=== PATIENT | male | born 1945 | race Caucasian/White ===

== ENCOUNTER 2018-06-29 18:43 | Emergency (ER) | payer MEDICARE, MEDICAID ==
[~2018-06-29] VITALS: Ht 175.3 cm; Wt 104.5 kg
[~2018-06-29 18:43] MED LIST: AMLO1CAP71 PO; ATOR40TA PO; COR3.125T PO; FURO-150 PO; METF500T PO; OMEP-84 PO; POTA8TAB46 PO; REPA2TAB7 PO; SAXA5TAB PO
[2018-06-29] MEDS ORDERED: dextrose 50%-water 50ml dispensing syringe IV ONE (19:11)
[2018-06-29 19:54] LABS: BASOPHILS # (AUTO) 0.1 X10'3 (0-0.2); BASOPHILS % (AUTO) 0.7 % (0-1); EOSINOPHILS # (AUTO) 0.2 X10'3 (0-0.9); EOSINOPHILS % (AUTO) 1.5 % (0-6); HEMATOCRIT 44.3 % (42.0-52.0); HEMOGLOBIN 14.5 g/dl (14.0-17.9); LYMPHOCYTES # (AUTO) 1.8 X10'3 (1.1-4.8); LYMPHOCYTES % (AUTO) 16.6 % (21-51); MEAN CORPUSCULAR HEMOGLOBIN 30.7 PG (27.0-31.0); MEAN CORPUSCULAR HGB CONC 32.7 g/dL (33.0-36.5); MEAN CORPUSCULAR VOLUME 93.7 FL (78-98); MEAN PLATELET VOLUME 9.1 FL (7.4-10.4); MONOCYTES # (AUTO) 0.8 X10'3 (0-0.9); MONOCYTES % (AUTO) 6.9 % (2-12); NEUTROPHILS # (AUTO) 8.1 X10'3 (1.8-7.7); NEUTROPHILS % (AUTO) 74.3 % (42-75); PLATELET COUNT 242 X10'3 (140-440); RED BLOOD COUNT 4.73 X10'6 (4.70-6.10); RED CELL DISTRIBUTION WIDTH 15.7 % (11.5-14.5); WHITE BLOOD COUNT 10.9 X10'3 (4.5-11.0)
[2018-06-29] MEDS ORDERED: ondansetron/PF 4mg/2ml inj IV ONE (20:15)
[2018-06-29] MEDS ORDERED: normal saline 1000ML IV soln IVB ONE (20:15)
[2018-06-29 21:48] LABS: ALANINE AMINOTRANSFERASE 27 U/L (12-78); ALBUMIN 3.7 G/DL (3.4-5.0); ALKALINE PHOSPHATASE 91 IU/L (46-116); ANION GAP 10 (8-16); ASPARTATE AMINO TRANSFERASE 28 U/L (10-37); BILIRUBIN,TOTAL 0.6 MG/DL (0.1-1.0); BLOOD UREA NITROGEN 20 MG/DL (7-18); BUN/CREATININE RATIO 15.6 (5.4-32.0); CALCIUM 9.4 MG/DL (8.5-10.1); CHLORIDE 104 MMOL/L (99-107); CREATININE 1.28 MG/DL (0.60-1.10); GLUCOSE 92 MG/DL (70-104); POTASSIUM 3.5 MMOL/L (3.5-5.1); SODIUM 142 MMOL/L (135-145); TOTAL CARBON DIOXIDE 28.2 MMOL/L (24-32); TOTAL PROTEIN 7.5 G/DL (6.4-8.2); eGFR 55 ML/MIN
--- NOTE | 2018-06-29 21:50 | NUR ---
DARIANA ZIMMERMAN DAUGHTER [phone].
[2018-06-29 21:51] LABS: TROPONIN I < 0.04 NG/ML (0.0-0.05)
[2018-06-29 21:54] VITALS: BP 158/78
--- NOTE | 2018-06-29 22:38 | NUR ---
TECH IS ASSISTING PATIENT TO GET DRESSED, GET UP AND GO TO THE BATHROOM.
--- NOTE | 2018-06-29 22:49 | NUR ---
PT DRESSED AND TOILETED INDEPENDENTLY WITHOUT ANY COMPLICATIONS AND DAUGHTER WAS NOTIFIED AND SHE WILL COME AND GET HIM.
== END 2018-06-29 23:04 | disposition home or self-care (01) ==
LOC: ER 18:44
DX: E86.0 Dehydration (principal); R41.82 Altered mental status, unspecified; E11.65 Type 2 diabetes mellitus with hyperglycemia; R60.0 Localized edema; E11.42 Type 2 diabetes mellitus with diabetic polyneuropathy; I11.0 Hypertensive heart disease with heart failure; I50.9 Heart failure, unspecified; E78.00 Pure hypercholesterolemia, unspecified; J45.909 Unspecified asthma, uncomplicated; Z86.73 Personal history of transient ischemic attack (TIA), and cerebral infarction without residual deficits; Z88.1 Allergy status to other antibiotic agents; Z79.899 Other long term (current) drug therapy
CPT/HCPCS: 36415; 70450; 71045; 72125; 80053; 82948; 84484; 85025; 93005; 96374; 96375; 99284; J2405; J7030

== ENCOUNTER 2019-04-11 20:46 | Emergency (ER) | payer MEDICARE, MEDICAID ==
[~2019-04-11] VITALS: Ht 175.3 cm; Wt 111.9 kg
[2019-04-11 20:50] VITALS: BP 184/95
[2019-04-11] MEDS ORDERED: rabies immune globulin/PF 150 unit/ml inj IMVAC STA (22:27)
[2019-04-11] MEDS ORDERED: ibuprofen tablet 400 MG TABLET PO ONE (22:30)
[2019-04-11] MEDS ORDERED: LIDOcaine 1% W/epiNEPHrine 1:200,000 10ml vial IJ ONE (22:30)
[2019-04-11] MEDS ORDERED: rabies vaccine (PCEC)/PF 2.5 unit kit IMVAC ONE (22:30)
[2019-04-11] MEDS ORDERED: DOXY100C43 PO (22:53)
[2019-04-11] MEDS ORDERED: DOXYCYCLINE 100MG CAPSULE PO STA (23:17)
--- NOTE | 2019-04-11 23:56 | NUR ---
IMMUNE GLOBULIN ADMINSTERED 8 ML AT SITE OF BITE, L HAND. 3 ML R ARM, 3 ML L LEG, 1 ML L ARM
== END 2019-04-12 00:29 | disposition home or self-care (01) ==
LOC: ER 20:47
DX: S61.412A Laceration without foreign body of left hand, initial encounter (principal); S60.511A Abrasion of right hand, initial encounter; Z23 Encounter for immunization; E11.42 Type 2 diabetes mellitus with diabetic polyneuropathy; I11.0 Hypertensive heart disease with heart failure; I50.9 Heart failure, unspecified; E78.00 Pure hypercholesterolemia, unspecified; J45.909 Unspecified asthma, uncomplicated; G47.30 Sleep apnea, unspecified; Z86.73 Personal history of transient ischemic attack (TIA), and cerebral infarction without residual deficits; Z98.890 Other specified postprocedural states; Z88.1 Allergy status to other antibiotic agents; Z79.84 Long term (current) use of oral hypoglycemic drugs; Z79.899 Other long term (current) drug therapy; W55.01XA Bitten by cat, initial encounter; Y93.89 Activity, other specified; Y92.89 Other specified places as the place of occurrence of the external cause; Y99.8 Other external cause status
CPT/HCPCS: 90375; 90471; 90675; 96372; 96374; 99284

== ENCOUNTER 2019-04-14 11:04 | Emergency (ER) | payer MEDICARE, MEDICAID ==
[~2019-04-14] VITALS: Ht 175.3 cm; Wt 110.2 kg
[~2019-04-14 11:04] MED LIST changes: +DOXY100C43 PO
[2019-04-14 11:18] VITALS: BP 172/84
[2019-04-14] MEDS ORDERED: rabies vaccine (PCEC)/PF 2.5 unit kit IMVAC ONE (11:40)
== END 2019-04-14 12:25 | disposition home or self-care (01) ==
LOC: ER 11:05
DX: Z23 Encounter for immunization (principal); I11.0 Hypertensive heart disease with heart failure; I50.9 Heart failure, unspecified; E78.00 Pure hypercholesterolemia, unspecified; J45.909 Unspecified asthma, uncomplicated; E11.42 Type 2 diabetes mellitus with diabetic polyneuropathy; Z86.73 Personal history of transient ischemic attack (TIA), and cerebral infarction without residual deficits; Z88.1 Allergy status to other antibiotic agents; Z79.899 Other long term (current) drug therapy
CPT/HCPCS: 90471; 90675; 99283

== ENCOUNTER 2019-04-18 14:23 | Emergency (ER) | payer MEDICARE, MEDICAID ==
[~2019-04-18] VITALS: Ht 175.3 cm; Wt 113.2 kg
[2019-04-18 14:32] VITALS: BP 163/82
[2019-04-18] MEDS ORDERED: rabies vaccine (PCEC)/PF 2.5 unit kit IMVAC ONE (14:50)
== END 2019-04-18 15:29 | disposition home or self-care (01) ==
LOC: ER 14:24
DX: Z23 Encounter for immunization (principal); S61.531D Puncture wound without foreign body of right wrist, subsequent encounter; S60.812D Abrasion of left wrist, subsequent encounter; E78.00 Pure hypercholesterolemia, unspecified; J45.909 Unspecified asthma, uncomplicated; E11.42 Type 2 diabetes mellitus with diabetic polyneuropathy; I11.0 Hypertensive heart disease with heart failure; I50.9 Heart failure, unspecified; Z86.73 Personal history of transient ischemic attack (TIA), and cerebral infarction without residual deficits; Z88.1 Allergy status to other antibiotic agents; Z79.899 Other long term (current) drug therapy; W55.01XD Bitten by cat, subsequent encounter
CPT/HCPCS: 90471; 90675; 99284

== ENCOUNTER 2019-04-25 18:49 | Emergency (ER) | payer MEDICARE, MEDICAID ==
[~2019-04-25] VITALS: Ht 175.3 cm; Wt 113.1 kg
[~2019-04-25 18:49] MED LIST changes: -DOXY100C43 PO
[2019-04-25] MEDS ORDERED: rabies vaccine (PCEC)/PF 2.5 unit kit IMVAC ONE (19:00)
[2019-04-25 19:51] VITALS: BP 182/110
== END 2019-04-25 19:53 | disposition home or self-care (01) ==
LOC: ER 18:49
DX: Z23 Encounter for immunization (principal); I11.0 Hypertensive heart disease with heart failure; I50.9 Heart failure, unspecified; E11.42 Type 2 diabetes mellitus with diabetic polyneuropathy; E78.00 Pure hypercholesterolemia, unspecified; Z86.73 Personal history of transient ischemic attack (TIA), and cerebral infarction without residual deficits; J45.909 Unspecified asthma, uncomplicated; Z88.1 Allergy status to other antibiotic agents; Z79.899 Other long term (current) drug therapy
CPT/HCPCS: 90471; 90675; 99283

== ENCOUNTER 2020-02-06 15:44 | Emergency (ER) | payer MEDICARE, MEDICAID ==
[~2020-02-06] VITALS: Ht 175.3 cm; Wt 120.2 kg
--- NOTE | 2020-02-06 20:18 | NUR ---
ULTRASOUND FINISHED AT THE BEDSIDE
[2020-02-06 21:00] VITALS: BP 167/79
[2020-02-06 21:36] LABS: BASOPHILS % (AUTO) 0.6 % (0-1); EOSINOPHILS # (AUTO) 0.1 X10'3 (0-0.9); EOSINOPHILS % (AUTO) 2.8 % (0-6); HEMATOCRIT 42.2 % (42.0-52.0); HEMOGLOBIN 14.2 g/dl (14.0-17.9); LYMPHOCYTES # (AUTO) 2.4 X10'3 (1.1-4.8); LYMPHOCYTES % (AUTO) 58.9 % (21-51); MEAN CORPUSCULAR HEMOGLOBIN 31.6 PG (27.0-31.0); MEAN CORPUSCULAR HGB CONC 33.7 g/dL (33.0-36.5); MEAN CORPUSCULAR VOLUME 93.9 FL (78-98); MEAN PLATELET VOLUME 8.2 FL (7.4-10.4); MONOCYTES # (AUTO) 0.5 X10'3 (0-0.9); MONOCYTES % (AUTO) 12.9 % (2-12); NEUTROPHILS % (AUTO) 24.8 % (42-75); PLATELET COUNT 267 X10'3 (140-440); RED CELL DISTRIBUTION WIDTH 15.6 % (11.5-14.5); WHITE BLOOD COUNT 4.1 X10'3 (4.5-11.0)
[2020-02-06 21:43] LABS: ALANINE AMINOTRANSFERASE 27 U/L (12-78); ALBUMIN 3.7 G/DL (3.4-5.0); ALBUMIN/GLOBULIN RATIO 0.9 (1.1-1.5); ALKALINE PHOSPHATASE 94 IU/L (46-116); ANION GAP 9 (8-16); ASPARTATE AMINO TRANSFERASE 27 U/L (10-37); BILIRUBIN,TOTAL 0.3 MG/DL (0.1-1.0); BLOOD UREA NITROGEN 25 MG/DL (7-18); BUN/CREATININE RATIO 14.5 (5.4-32.0); CALCIUM 9.2 MG/DL (8.5-10.1); CHLORIDE 104 MMOL/L (99-107); CREATININE 1.73 MG/DL (0.60-1.10); GLUCOSE 85 MG/DL (70-104); SODIUM 141 MMOL/L (135-145); TOTAL CARBON DIOXIDE 28.2 MMOL/L (24-32); TOTAL PROTEIN 7.6 G/DL (6.4-8.2); eGFR 39 ML/MIN
[2020-02-06] MEDS ORDERED: DOXY100C2 PO (21:51)
== END 2020-02-06 22:24 | disposition home or self-care (01) ==
LOC: ER 15:45
DX: M79.604 Pain in right leg (principal); E11.42 Type 2 diabetes mellitus with diabetic polyneuropathy; I50.9 Heart failure, unspecified; E78.00 Pure hypercholesterolemia, unspecified; I11.0 Hypertensive heart disease with heart failure; G47.30 Sleep apnea, unspecified; Z86.73 Personal history of transient ischemic attack (TIA), and cerebral infarction without residual deficits; Z98.890 Other specified postprocedural states; Z88.8 Allergy status to other drugs, medicaments and biological substances; Z79.899 Other long term (current) drug therapy
CPT/HCPCS: 80053; 85025; 93971; 99284

== ENCOUNTER 2021-12-02 10:44 | Inpatient (IN) | payer MEDICARE, MEDICAID ==
[~2021-12-02] VITALS: Ht 175.3 cm; Wt 92.9 kg
--- NOTE | 2021-12-02 10:57 | NUR ---
GIVEN ORANGE JUICE FOR BG 62.
--- NOTE | 2021-12-02 10:58 | NUR ---
PATIENT ADDED THAT HIS BLE WERE INCREASING IN SWELLING FOR THE PAST COUPLE OF DAYS WELL.
--- NOTE | 2021-12-02 11:24 | NUR ---
Catie Blackwell, patient's [facility] worker, called to check on patient and inform us that if patient is discharged she is available to pick him up.
[2021-12-02 12:33] LABS: BASOPHILS % (AUTO) 0.3 % (0-1); EOSINOPHILS % (AUTO) 0.1 % (0-6); HEMATOCRIT 35.8 % (42.0-52.0); HEMOGLOBIN 11.7 g/dl (14.0-17.9); LYMPHOCYTES # (AUTO) 0.8 X10'3 (1.1-4.8); MEAN CORPUSCULAR HEMOGLOBIN 32.4 PG (27.0-31.0); MEAN CORPUSCULAR HGB CONC 32.8 g/dL (33.0-36.5); MEAN CORPUSCULAR VOLUME 98.7 FL (78-98); MEAN PLATELET VOLUME 8.9 FL (7.4-10.4); MONOCYTES # (AUTO) 0.4 X10'3 (0-0.9); MONOCYTES % (AUTO) 5.8 % (2-12); NEUTROPHILS # (AUTO) 5.7 X10'3 (1.8-7.7); NEUTROPHILS % (AUTO) 81.8 % (42-75); PLATELET COUNT 246 X10'3 (140-440); RED BLOOD COUNT 3.62 X10'6 (4.70-6.10); RED CELL DISTRIBUTION WIDTH 16.4 % (11.5-14.5)
[2021-12-02 12:53] LABS: ALANINE AMINOTRANSFERASE 24 U/L (12-78); ALBUMIN 3.6 G/DL (3.4-5.0); ALBUMIN/GLOBULIN RATIO 1.1 (1.1-1.5); ALKALINE PHOSPHATASE 75 IU/L (46-116); ANION GAP 9 (8-16); ASPARTATE AMINO TRANSFERASE 25 U/L (10-37); BILIRUBIN,TOTAL 0.4 MG/DL (0.1-1.0); BLOOD UREA NITROGEN 76 MG/DL (7-18); BUN/CREATININE RATIO 15.2 (5.4-32.0); CALCIUM 8.8 MG/DL (8.5-10.1); CHLORIDE 111 MMOL/L (99-107); CREATININE 4.99 MG/DL (0.60-1.10); GLUCOSE 109 MG/DL (70-104); SODIUM 137 MMOL/L (135-145); TOTAL CARBON DIOXIDE 17.3 MMOL/L (24-32); eGFR 11 ML/MIN
[2021-12-02 13:11] LABS: POTASSIUM 8.1 MMOL/L (3.5-5.1)
[2021-12-02] MEDS ORDERED: normal saline 1000ML IV soln IVB ONE ×2 (13:15→13:35)
[2021-12-02] MEDS ORDERED: calcium chloride 100 MG/1 ML inj IV ONE (13:30)
[2021-12-02] MEDS ORDERED: albuterol 2.5 MG/3 ML nebule CONTNEB PRN (13:30)
[2021-12-02] MEDS ORDERED: SODIUM ZIRCONIUM CYCLOSILICATE 10 GM POWD.PACK PO STA (13:35)
[2021-12-02 13:40] LABS: CLARITY,URINE CLEAR (Clear); COLOR,URINE YELLOW (Yellow); GLUCOSE, URINE NEGATIVE (Neg); KETONES,URINE NEGATIVE (Neg); LEUKOCYTE ESTERASE ,URINE NEGATIVE (Neg); NITRITES, URINE NEGATIVE (Neg); OCCULT BLOOD,URINE SMALL (Neg); PROTEIN,URINE NEGATIVE (Neg); UROBILINOGEN,URINE 0.2 E.U/dL (0.2-1.0)
[2021-12-02 13:41] LABS: UA COLLECTION TYPE VOIDED
[2021-12-02 13:47] LABS: HYALINE CASTS 0-3 /LPF (NEGATIVE)
[2021-12-02 13:48] LABS: BACTERIA,URINE NONE SEEN /HPF (Neg); MUCUS STRANDS NONE SEEN /LPF (Neg); RBC,URINE 0-2 /HPF (0-2); SQUAMOUS EPITHELIAL CELL,UR FEW /LPF (FEW); WBC,URINE 0-4 /HPF (0-4)
[2021-12-02] MEDS ORDERED: magnesium 4gm in 100ml NS 100 ML IV PRN (15:05)
[2021-12-02] MEDS ORDERED: acetaminophen 325mg tablet PO PRN (15:05)
[2021-12-02] MEDS ORDERED: potassium CL 10mEq/100ml bag 100 ML IV PRN (15:05)
[2021-12-02] MEDS ORDERED: magnesium 2GM in 50ml NS 50 ML IV PRN (15:05)
[2021-12-02] MEDS ORDERED: POTASSIUM BICARB 20meq eff tab 20 MEQ TABLET.EFF PO PRN ×2 (15:05)
[2021-12-02] MEDS ORDERED: ondansetron/PF 4mg/2ml inj IV PRN (15:05)
[2021-12-02] MEDS ORDERED: sodium polystyrene sulfonate 15gm/60ml oral suspension PO ONE (15:10)
[2021-12-02 15:26] LABS: MAGNESIUM 1.4 MG/DL (1.5-2.4)
--- NOTE | 2021-12-02 15:42 | NUR ---
Patient in room PCU 3010. I have received report from GABRIELLE OCHOA FROM ER and had the opportunity to ask questions and assume patient care.
[2021-12-02 16:00] VITALS: BP 128/63
[2021-12-02 16:07] LABS: ALANINE AMINOTRANSFERASE 24 U/L (12-78); ALBUMIN 3.4 G/DL (3.4-5.0); ALKALINE PHOSPHATASE 73 IU/L (46-116); ANION GAP 12 (8-16); ASPARTATE AMINO TRANSFERASE 27 U/L (10-37); BILIRUBIN,TOTAL 0.4 MG/DL (0.1-1.0); BLOOD UREA NITROGEN 74 MG/DL (7-18); BUN/CREATININE RATIO 16.3 (5.4-32.0); CALCIUM 9.1 MG/DL (8.5-10.1); CHLORIDE 114 MMOL/L (99-107); CREATININE 4.54 MG/DL (0.60-1.10); GLUCOSE 108 MG/DL (70-104); SODIUM 142 MMOL/L (135-145); TOTAL PROTEIN 6.7 G/DL (6.4-8.2); eGFR 13 ML/MIN
--- NOTE | 2021-12-02 16:09 | NUR ---
CRITICAL POTASSIUM, DR LINO AWAITING CALL BACK, WILL GIVE KAYEXALATE ORDERED
[2021-12-02 16:11] LABS: POTASSIUM 6.4 MMOL/L (3.5-5.1)
[2021-12-02] MEDS: normal saline 1000ml 1,000 ML IV SCH (17:05)
[2021-12-02 18:00] VITALS: BP 138/65
[2021-12-02] MEDS ORDERED: METF-438 PO (18:08)
[2021-12-02] MEDS ORDERED: INSU100I25 SQ (18:08)
[2021-12-02] MEDS ORDERED: AMLO-139 PO (18:08)
[2021-12-02] MEDS ORDERED: POTA-208 PO (18:08)
[2021-12-02] MEDS ORDERED: CARV6.253 PO (18:08)
[2021-12-02] MEDS ORDERED: dextrose 50%-water 50ml dispensing syringe IV PRN ×2 (18:45)
[2021-12-02] MEDS ORDERED: glucagon, human recombinant 1mg kit SUBCUT PRN (18:45)
[2021-12-02] MEDS ORDERED: DEXTROSE 15 GM of carb/4 tabs (each vial/BOTTLE has 4 tablets) PO PRN ×2 (18:45)
[2021-12-02] MEDS ORDERED: MESSAGE TO PHARMACY PO ONE (18:45)
[2021-12-02] MEDS ORDERED: insulin Lispro (HumaLOG) vial - multi-dose SQ SCH (18:45)
--- NOTE | 2021-12-02 19:05 | NUR ---
Problems reprioritized. Patient report given, questions answered & plan of care reviewed with GABRIELLE RUDOLPH.
[2021-12-02 19:28] LABS: HEMOGLOBIN A1C 6.7 % (4.5-6.2)
[2021-12-02] MEDS: K and/or MAG REPLACEMENT MC SCH (19:50)
[2021-12-02] MEDS: insulin glargine (Lantus) pen - multi-dose SQ SCH (21:00)
[2021-12-02 22:00] VITALS: BP 155/41
[2021-12-03] VITALS (7 sets, daily range): BP systolic 116–131; BP diastolic 54–65
[2021-12-03] MEDS: normal saline 1000ml 1,000 ML IV SCH ×2 (01:05→11:45)
--- NOTE | 2021-12-03 05:28 | NUR ---
two RN skin check completed with Vira ANTHONY. System would not allow co-sign
--- NOTE | 2021-12-03 06:35 | NUR ---
Patient in room PCU 3010. I have received report from GABRIELLE RUDOLPH and had the opportunity to ask questions and assume patient care.
[2021-12-03 06:49] LABS: BASOPHILS % (AUTO) 0.6 % (0-1); EOSINOPHILS # (AUTO) 0.1 X10'3 (0-0.9); EOSINOPHILS % (AUTO) 2.9 % (0-6); HEMATOCRIT 29.2 % (42.0-52.0); HEMOGLOBIN 9.9 g/dl (14.0-17.9); LYMPHOCYTES # (AUTO) 1.3 X10'3 (1.1-4.8); LYMPHOCYTES % (AUTO) 26.3 % (21-51); MEAN CORPUSCULAR HEMOGLOBIN 33.5 PG (27.0-31.0); MEAN CORPUSCULAR VOLUME 98.6 FL (78-98); MEAN PLATELET VOLUME 8.8 FL (7.4-10.4); MONOCYTES # (AUTO) 0.4 X10'3 (0-0.9); MONOCYTES % (AUTO) 8.5 % (2-12); NEUTROPHILS # (AUTO) 3.1 X10'3 (1.8-7.7); NEUTROPHILS % (AUTO) 61.7 % (42-75); PLATELET COUNT 196 X10'3 (140-440); RED BLOOD COUNT 2.96 X10'6 (4.70-6.10); RED CELL DISTRIBUTION WIDTH 16.1 % (11.5-14.5); WHITE BLOOD COUNT 5.1 X10'3 (4.5-11.0)
[2021-12-03 07:05] LABS: ANION GAP 11 (8-16); BLOOD UREA NITROGEN 60 MG/DL (7-18); CALCIUM 8.2 MG/DL (8.5-10.1); CHLORIDE 117 MMOL/L (99-107); CREATININE 3.76 MG/DL (0.60-1.10); GLUCOSE 137 MG/DL (70-104); MAGNESIUM 1.2 MG/DL (1.5-2.4); POTASSIUM 5.5 MMOL/L (3.5-5.1); SODIUM 145 MMOL/L (135-145); TOTAL CARBON DIOXIDE 17.2 MMOL/L (24-32); eGFR 16 ML/MIN
[2021-12-03] MEDS: K and/or MAG REPLACEMENT MC SCH ×2 (08:00→19:08)
[2021-12-03] MEDS: sodium chloride 0.45% 1,000 ML IV SCH ×2 (08:51→13:05)
[2021-12-03] MEDS ORDERED: PERFLUTREN PROTEIN-A MICROSPHR (Optison) 0.22 MG/ML 3ML VIAL IV ONE (13:10)
--- NOTE | 2021-12-03 18:57 | NUR ---
Problems reprioritized. Patient report given, questions answered & plan of care reviewed with GABRIELLE RUDOLPH.
[2021-12-03] MEDS ORDERED: insulin glargine (Lantus) pen - multi-dose SQ SCH (21:00)
[2021-12-03] MEDS: insulin glargine (Lantus) pen - multi-dose SQ SCH (21:00)
[2021-12-03] MEDS: carvedilol 6.25mg tablet PO SCH (21:02)
[2021-12-03] MEDS: atorvastatin 20mg tablet PO SCH (21:02)
[2021-12-04 02:00] VITALS: BP 133/60
[2021-12-04 06:00] VITALS: BP 131/57
--- NOTE | 2021-12-04 06:45 | NUR ---
Patient in room PCU 3010. I have received report from GABRIELLE Mcintyre and had the opportunity to ask questions and assume patient care.
[2021-12-04 07:33] LABS: BASOPHILS % (AUTO) 0.6 % (0-1); EOSINOPHILS # (AUTO) 0.2 X10'3 (0-0.9); EOSINOPHILS % (AUTO) 5.4 % (0-6); HEMATOCRIT 29.8 % (42.0-52.0); HEMOGLOBIN 10.1 g/dl (14.0-17.9); LYMPHOCYTES # (AUTO) 1.3 X10'3 (1.1-4.8); MEAN CORPUSCULAR HEMOGLOBIN 33.2 PG (27.0-31.0); MEAN CORPUSCULAR HGB CONC 33.8 g/dL (33.0-36.5); MEAN CORPUSCULAR VOLUME 98.3 FL (78-98); MEAN PLATELET VOLUME 9.5 FL (7.4-10.4); MONOCYTES # (AUTO) 0.4 X10'3 (0-0.9); MONOCYTES % (AUTO) 9.6 % (2-12); NEUTROPHILS # (AUTO) 2.5 X10'3 (1.8-7.7); NEUTROPHILS % (AUTO) 56.4 % (42-75); PLATELET COUNT 203 X10'3 (140-440); RED BLOOD COUNT 3.03 X10'6 (4.70-6.10); RED CELL DISTRIBUTION WIDTH 16.2 % (11.5-14.5); WHITE BLOOD COUNT 4.5 X10'3 (4.5-11.0)
[2021-12-04 07:49] LABS: ALBUMIN 2.9 G/DL (3.4-5.0); ANION GAP 12 (8-16); BLOOD UREA NITROGEN 43 MG/DL (7-18); BUN/CREATININE RATIO 15.6 (5.4-32.0); CALCIUM 8.1 MG/DL (8.5-10.1); CHLORIDE 117 MMOL/L (99-107); CREATININE 2.75 MG/DL (0.60-1.10); GLUCOSE 152 MG/DL (70-104); MAGNESIUM 1.3 MG/DL (1.5-2.4); POTASSIUM 4.7 MMOL/L (3.5-5.1); SODIUM 148 MMOL/L (135-145); TOTAL CARBON DIOXIDE 19.3 MMOL/L (24-32); eGFR 23 ML/MIN
[2021-12-04] MEDS: K and/or MAG REPLACEMENT MC SCH ×2 (08:00→20:00)
[2021-12-04] MEDS: carvedilol 6.25mg tablet PO SCH ×2 (08:37→23:04)
[2021-12-04] MEDS: pantoprazole 40mg Tablet.DR PO SCH (08:38)
[2021-12-04] MEDS: magnesium Cl slow-release 64mg tablet PO PRN ×2 (09:13→23:03)
[2021-12-04] MEDS: sodium chloride 0.45% 1,000 ML IV SCH (09:24)
[2021-12-04 11:00] VITALS: BP 133/70
[2021-12-04 15:00] VITALS: BP 125/58
[2021-12-04 17:05] LABS: CLARITY,URINE CLEAR (Clear); COLOR,URINE YELLOW (Yellow); GLUCOSE, URINE 100 mg/dl (Neg); KETONES,URINE NEGATIVE (Neg); LEUKOCYTE ESTERASE ,URINE NEGATIVE (Neg); NITRITES, URINE NEGATIVE (Neg); OCCULT BLOOD,URINE NEGATIVE (Neg); PH,URINE 5.5 (4.8-8.0); PROTEIN,URINE NEGATIVE (Neg); UROBILINOGEN,URINE 0.2 E.U/dL (0.2-1.0)
[2021-12-04 17:06] LABS: UA COLLECTION TYPE NON-SPECIFIED
[2021-12-04 17:07] LABS: TOTAL PROTEIN,URINE RANDOM 24.6 MG/DL
[2021-12-04 18:00] VITALS: BP 122/59
[2021-12-04 18:05] LABS: UA EOSINOPHILS NO EOS /HPF
[2021-12-04] MEDS: insulin glargine (Lantus) pen - multi-dose SQ SCH (21:00)
[2021-12-04 22:00] VITALS: BP 129/60
[2021-12-04] MEDS: atorvastatin 20mg tablet PO SCH (23:04)
[2021-12-05 02:00] VITALS: BP 118/56
[2021-12-05] MEDS: sodium chloride 0.45% 1,000 ML IV SCH ×2 (05:05→09:55)
[2021-12-05 06:00] VITALS: BP 147/75
--- NOTE | 2021-12-05 06:33 | NUR ---
Patient in room PCU 3010. I have received report from GABRIELLE Mcintyre and had the opportunity to ask questions and assume patient care.
[2021-12-05 06:47] LABS: BASOPHILS % (AUTO) 0.6 % (0-1); EOSINOPHILS # (AUTO) 0.3 X10'3 (0-0.9); EOSINOPHILS % (AUTO) 5.8 % (0-6); HEMATOCRIT 29.8 % (42.0-52.0); HEMOGLOBIN 10.2 g/dl (14.0-17.9); LYMPHOCYTES # (AUTO) 1.4 X10'3 (1.1-4.8); LYMPHOCYTES % (AUTO) 28.3 % (21-51); MEAN CORPUSCULAR HEMOGLOBIN 33.1 PG (27.0-31.0); MEAN CORPUSCULAR VOLUME 97.3 FL (78-98); MEAN PLATELET VOLUME 8.8 FL (7.4-10.4); MONOCYTES # (AUTO) 0.5 X10'3 (0-0.9); NEUTROPHILS # (AUTO) 2.7 X10'3 (1.8-7.7); NEUTROPHILS % (AUTO) 55.3 % (42-75); PLATELET COUNT 218 X10'3 (140-440); RED BLOOD COUNT 3.07 X10'6 (4.70-6.10); RED CELL DISTRIBUTION WIDTH 16.3 % (11.5-14.5); WHITE BLOOD COUNT 4.8 X10'3 (4.5-11.0)
[2021-12-05 07:06] LABS: ANION GAP 10 (8-16); BLOOD UREA NITROGEN 33 MG/DL (7-18); BUN/CREATININE RATIO 13.6 (5.4-32.0); CALCIUM 7.8 MG/DL (8.5-10.1); CHLORIDE 115 MMOL/L (99-107); CREATININE 2.42 MG/DL (0.60-1.10); GLUCOSE 142 MG/DL (70-104); MAGNESIUM 1.3 MG/DL (1.5-2.4); POTASSIUM 4.7 MMOL/L (3.5-5.1); SODIUM 145 MMOL/L (135-145); TOTAL CARBON DIOXIDE 19.8 MMOL/L (24-32); eGFR 26 ML/MIN
[2021-12-05] MEDS: K and/or MAG REPLACEMENT MC SCH (08:00)
[2021-12-05] MEDS: pantoprazole 40mg Tablet.DR PO SCH (08:33)
[2021-12-05] MEDS: carvedilol 6.25mg tablet PO SCH (08:33)
[2021-12-05] MEDS: magnesium Cl slow-release 64mg tablet PO PRN (08:58)
[2021-12-05 11:00] VITALS: BP 135/72
[2021-12-05] MEDS ORDERED: FURO-150 PO (11:23)
[2021-12-05] MEDS ORDERED: INSU100I25 SQ (11:23)
[2021-12-05] MEDS ORDERED: [UNRECOGNIZED DRUG - CODE] TOP (11:30)
[2021-12-05] MEDS ORDERED: [UNRECOGNIZED DRUG - CODE] SQ (11:30)
--- NOTE | 2021-12-10 09:12 | NUR ---
Case Management DC follow up: left VM with name, telephone number, and reason for call.
== END 2021-12-05 14:52 | disposition home health service (06) | DRG 682 ==
LOC: ER 10:44 → PCU 3S 15:08
PROVIDERS: ADMIT Internal Medicine; ATTEND Internal Medicine
DX: N17.0 Acute kidney failure with tubular necrosis (principal); I50.31 Acute diastolic (congestive) heart failure; I13.0 Hypertensive heart and chronic kidney disease with heart failure and stage 1 through stage 4 chronic kidney disease, or unspecified chronic kidney disease; E87.2 Acidosis; E86.0 Dehydration; E87.5 Hyperkalemia; E11.22 Type 2 diabetes mellitus with diabetic chronic kidney disease; N18.9 Chronic kidney disease, unspecified; I50.9 Heart failure, unspecified; E11.42 Type 2 diabetes mellitus with diabetic polyneuropathy; E78.00 Pure hypercholesterolemia, unspecified; K21.9 Gastro-esophageal reflux disease without esophagitis; W06.XXXA Fall from bed, initial encounter; T50.1X5A Adverse effect of loop [high-ceiling] diuretics, initial encounter; E66.01 Morbid (severe) obesity due to excess calories; G47.30 Sleep apnea, unspecified; E11.649 Type 2 diabetes mellitus with hypoglycemia without coma; R19.7 Diarrhea, unspecified; I25.10 Atherosclerotic heart disease of native coronary artery without angina pectoris; J45.909 Unspecified asthma, uncomplicated; Z79.4 Long term (current) use of insulin; Z86.73 Personal history of transient ischemic attack (TIA), and cerebral infarction without residual deficits; Z79.84 Long term (current) use of oral hypoglycemic drugs; Y93.89 Activity, other specified; Y92.098 Other place in other non-institutional residence as the place of occurrence of the external cause; Y99.8 Other external cause status; Z88.1 Allergy status to other antibiotic agents; Z68.30 Body mass index [BMI] 30.0-30.9, adult; Z79.899 Other long term (current) drug therapy
CPT/HCPCS: 36415; 71045; 76770; 80048; 80053; 81001; 81003; 82570; 82948; 83036; 83735; 83880; 84156; 84300; 85025; 87081; 87207; 93306; 94640; 94760; 96361; 96374; 97116; 97161; 97530; 99285; A7015; G0378; J1815; J3490; J7030; J7042

== ENCOUNTER 2022-11-09 03:49 | Emergency (ER) | payer MEDICARE, MEDICAID ==
[~2022-11-09] VITALS: Ht 170.2 cm; Wt 106.8 kg
[~2022-11-09 03:49] MED LIST changes: -AMLO1CAP71 PO; +CARV6.253 PO; -COR3.125T PO; +INSU100I27 SQ; -METF500T PO; -POTA8TAB46 PO; -REPA2TAB7 PO; -SAXA5TAB PO; +[UNRECOGNIZED DRUG - CODE] SQ; +[UNRECOGNIZED DRUG - CODE] TOP
[2022-11-09 03:52] VITALS: TEMP 98.1
[2022-11-09] MEDS ORDERED: loperamide 2mg capsule PO ONE (06:55)
[2022-11-09 07:22] LABS: BASOPHILS % (AUTO) 0.1 % (0-1); EOSINOPHILS # (AUTO) 0.3 X10'3 (0-0.9); EOSINOPHILS % (AUTO) 2.8 % (0-6); HEMATOCRIT 41.4 % (42.0-52.0); HEMOGLOBIN 13.8 g/dl (14.0-17.9); LYMPHOCYTES # (AUTO) 1.2 X10'3 (1.1-4.8); LYMPHOCYTES % (AUTO) 13.2 % (21-51); MEAN CORPUSCULAR HEMOGLOBIN 31.5 PG (27.0-31.0); MEAN CORPUSCULAR HGB CONC 33.3 g/dL (33.0-36.5); MEAN CORPUSCULAR VOLUME 94.7 FL (78-98); MEAN PLATELET VOLUME 8.5 FL (7.4-10.4); MONOCYTES # (AUTO) 0.6 X10'3 (0-0.9); NEUTROPHILS # (AUTO) 7.1 X10'3 (1.8-7.7); NEUTROPHILS % (AUTO) 76.9 % (42-75); PLATELET COUNT 265 X10'3 (140-440); RED BLOOD COUNT 4.38 X10'6 (4.70-6.10); RED CELL DISTRIBUTION WIDTH 15.7 % (11.5-14.5); WHITE BLOOD COUNT 9.3 X10'3 (4.5-11.0)
[2022-11-09 07:24] LABS: CLARITY,URINE CLEAR (Clear); COLOR,URINE YELLOW (Yellow); GLUCOSE, URINE >=1000 mg/dl (Neg); KETONES,URINE NEGATIVE (Neg); LEUKOCYTE ESTERASE ,URINE NEGATIVE (Neg); NITRITES, URINE NEGATIVE (Neg); OCCULT BLOOD,URINE NEGATIVE (Neg); PH,URINE 5.5 (4.8-8.0); PROTEIN,URINE NEGATIVE (Neg); UROBILINOGEN,URINE 0.2 E.U/dL (0.2-1.0)
[2022-11-09 07:28] LABS: UA COLLECTION TYPE CLN CATCH MIDSTREAM
[2022-11-09 07:30] LABS: BACTERIA,URINE FEW /HPF (Neg); HYALINE CASTS 0-3 /LPF (NEGATIVE); MUCUS STRANDS FEW /LPF (Neg); RBC,URINE 0-2 /HPF (0-2); SQUAMOUS EPITHELIAL CELL,UR FEW /LPF (FEW); WBC,URINE 0-4 /HPF (0-4)
[2022-11-09 07:41] LABS: ALANINE AMINOTRANSFERASE 24 U/L (12-78); ALBUMIN 3.5 G/DL (3.4-5.0); ALBUMIN/GLOBULIN RATIO 0.9 (1.1-1.5); ALKALINE PHOSPHATASE 111 IU/L (46-116); ANION GAP 9 (8-16); ASPARTATE AMINO TRANSFERASE 21 U/L (10-37); BILIRUBIN,TOTAL 0.7 MG/DL (0.1-1.0); BLOOD UREA NITROGEN 28 MG/DL (7-18); CALCIUM 8.5 MG/DL (8.5-10.1); CHLORIDE 101 MMOL/L (99-107); CREATININE 2.15 MG/DL (0.60-1.10); GLUCOSE 357 MG/DL (70-104); LIPASE 128 U/L (73-393); POTASSIUM 4.9 MMOL/L (3.5-5.1); SODIUM 136 MMOL/L (135-145); TOTAL CARBON DIOXIDE 25.7 MMOL/L (24-32); TOTAL PROTEIN 7.2 G/DL (6.4-8.2); eGFR 30 ML/MIN
[2022-11-09 09:35] VITALS: BP 119/58; PULSE 64; RESP 20; O2SAT 98
[2022-11-09] MEDS ORDERED: LOPE-206 PO (09:55)
[2022-11-09] MEDS ORDERED: DICY10CA88 PO (09:55)
== END 2022-11-09 10:00 | disposition home or self-care (01) ==
LOC: ER 03:49
DX: R19.7 Diarrhea, unspecified (principal); R10.9 Unspecified abdominal pain; R55 Syncope and collapse; I11.9 Hypertensive heart disease without heart failure; E78.00 Pure hypercholesterolemia, unspecified; I10 Essential (primary) hypertension; J45.909 Unspecified asthma, uncomplicated; E11.9 Type 2 diabetes mellitus without complications; Z79.899 Other long term (current) drug therapy
CPT/HCPCS: 36415; 74176; 80053; 81001; 83690; 85025; 99285